=== PATIENT | male | born 2000 | race Caucasian/White ===

== ENCOUNTER 2022-05-18 21:49 | Emergency (ER) | payer BC, OTHER ==
[~2022-05-18] VITALS: Ht 185.4 cm; Wt 142.9 kg
[2022-05-18 23:04] VITALS: BP 149/107
[2022-05-18] MEDS ORDERED: NACL 0.9% 1,000 ML IV ONE (23:50)
[2022-05-19 00:12] LABS: BASOPHILS # (AUTO) 0.1 K/uL (0.00-0.22); BASOPHILS % (AUTO) 0.7 % (0.0-2.0); EOSINOPHILS # (AUTO) 0.2 K/uL (0-0.4); EOSINOPHILS % (AUTO) 1.8 % (0.0-4.0); HEMATOCRIT 46.7 % (36-52); HEMOGLOBIN 16.1 g/dL (12.0-18.0); LYMPHOCYTES # (AUTO) 2.7 K/uL (2.0-11.5); LYMPHOCYTES % (AUTO) 28.5 % (20.5-51.1); MEAN CORPUSCULAR HEMOGLOBIN 31 pg (27-31); MEAN CORPUSCULAR HGB CONC 34 g/dL (33-37); MEAN CORPUSCULAR VOLUME 88.8 fL (80-94); MONOCYTES # (AUTO) 0.6 K/uL (0.8-1.0); MONOCYTES % (AUTO) 6.8 % (1.7-9.3); NEUTROPHILS # (AUTO) 5.8 K/uL (1.8-7.7); NEUTROPHILS % (AUTO) 62.2 % (42.2-75.2); PLATELET COUNT (AUTO) 300 K/uL (140-450); RED BLOOD CELL COUNT(AUTO) 5.26 MIL/uL (4.20-6.10); RED CELL DISTRIBUTION WIDTH 13.3 % (11.6-13.7); WHITE BLOOD COUNT (AUTO) 9.4 K/uL (4.8-10.8)
[2022-05-19 00:32] LABS: ALBUMIN 4.1 g/dL (3.4-5.0); ANION GAP 12.5 (8-16); CARBON DIOXIDE 26.6 mmol/L (21-32); CREATININE 1.1 mg/dL (0.6-1.3); POTASSIUM 4.1 mmol/L (3.5-5.1); TOTAL BILIRUBIN 0.6 mg/dL (0.0-1.0)
[2022-05-19 00:54] LABS: APPEARANCE,URINE CLEAR (CLEAR); BILIRUBIN,URINE NEGATIVE (NEGATIVE); BLOOD, URINE NEGATIVE (NEGATIVE); COLOR,URINE YELLOW (YELLOW); LEUKOCYTE ESTERASE ,URINE NEGATIVE (NEGATIVE); NITRITE, URINE NEGATIVE (NEGATIVE); UGLUCOSE NEGATIVE (NEGATIVE)
--- NOTE | 2022-05-19 01:00 | NUR ---
RECEIVED IN BED 11 WITH C/O LEFT SIDE ABD PAIN X 3 WEEKS WITH BLOODY STOOL X 1 WEEK WITH NAUSEA. DENIES VOMITING. PMH: HTN
[2022-05-19 04:50] VITALS: BP 149/107
--- NOTE | 2022-05-19 04:50 | NUR ---
Patient discharged with v/s stable. Written and verbal after care instructions given and explained. Patient verbalized understanding. Ambulatory with steady gait. All questions addressed prior to discharge. Advised to follow up with PMD.
== END 2022-05-19 04:28 | disposition home or self-care (01) ==
LOC: MED 21:49
DX: K62.5 Hemorrhage of anus and rectum (principal); Z20.822 Contact with and (suspected) exposure to COVID-19; I10 Essential (primary) hypertension
CPT/HCPCS: 36415; 74176; 80053; 81003; 83605; 85025; 87040; 87426; 99284; J7030

== ENCOUNTER 2022-06-30 04:55 | Emergency (ER) | payer BC, OTHER ==
[~2022-06-30] VITALS: Ht 154.9 cm; Wt 138.3 kg
[2022-06-30 05:03] VITALS: BP 165/91
--- NOTE | 2022-06-30 05:09 | NUR ---
PT TAKEN TO BED 7
--- NOTE | 2022-06-30 05:17 | NUR ---
22/M BIB SELF WITH C/C OF HIGH BP SINCE YESTERDAY. PT TOOK HIS 10PM BP MEDS. REPORTS 7/10 H/A. STATES HE HAS CHEST DISCOMFORT " I FEEL LIKE MY HEART IS BEATING REALLY FAST". REPORTS CHILLS. DENIES VISION CHANGES. PER PATIENT HE HASNT TAKEN BP MEDICATION IN A WEEK AND DECIDED TO TAKE HIS MEDS DUE TO HEADACHE. PATIENT IS AAOX4 AND AMBULATORY. RR EVEN AND UNLABORED. DOESNT APPEAR TO BE IN DISTRESS. PLACED IN BED. BED LOW AND LOCKED. ALL NEEDS MET. PMHX HTN RX LISINOPRIL AND AMLODIPINE NKA
--- NOTE | 2022-06-30 06:00 | NUR ---
Dr. Driscoll examining patient.
--- NOTE | 2022-06-30 06:16 | NUR ---
X-Ray at bedside.
--- NOTE | 2022-06-30 06:16 | NUR ---
RAD AT BEDSIDE
--- NOTE | 2022-06-30 06:35 | NUR ---
BLOOD COLLECTED AND HANDED TO LAB.
[2022-06-30 06:49] LABS: BASOPHILS # (AUTO) 0.1 K/uL (0.00-0.22); BASOPHILS % (AUTO) 1.1 % (0.0-2.0); EOSINOPHILS # (AUTO) 0.1 K/uL (0-0.4); EOSINOPHILS % (AUTO) 1.2 % (0.0-4.0); HEMATOCRIT 45.2 % (36-52); HEMOGLOBIN 15.4 g/dL (12.0-18.0); LYMPHOCYTES # (AUTO) 2.1 K/uL (2.0-11.5); LYMPHOCYTES % (AUTO) 25.2 % (20.5-51.1); MEAN CORPUSCULAR HEMOGLOBIN 31 pg (27-31); MEAN CORPUSCULAR HGB CONC 34 g/dL (33-37); MEAN CORPUSCULAR VOLUME 89.2 fL (80-94); MONOCYTES # (AUTO) 0.6 K/uL (0.8-1.0); MONOCYTES % (AUTO) 7.3 % (1.7-9.3); NEUTROPHILS # (AUTO) 5.4 K/uL (1.8-7.7); NEUTROPHILS % (AUTO) 65.2 % (42.2-75.2); RED BLOOD CELL COUNT(AUTO) 5.06 MIL/uL (4.20-6.10); RED CELL DISTRIBUTION WIDTH 13.8 % (11.6-13.7); WHITE BLOOD COUNT (AUTO) 8.3 K/uL (4.8-10.8)
[2022-06-30 07:10] LABS: ALBUMIN 3.5 g/dL (3.4-5.0); ANION GAP 14.2 (8-16); ASPARTATE AMINOTRANSFERASE 36 U/L (15-37); CARBON DIOXIDE 23.1 mmol/L (21-32); CHLORIDE 105 mmol/L (98-107); CREATININE 0.8 mg/dL (0.6-1.3); GFR ARICAN-AMERICAN 153 mL/min (>90); GLUCOSE 103 mg/dL (74-106); POTASSIUM 4.3 mmol/L (3.5-5.1); SODIUM SERUM 138 mmol/L (136-145); TOTAL BILIRUBIN 1.1 mg/dL (0.0-1.0)
--- NOTE | 2022-06-30 07:15 | NUR ---
REPORT GIVEN TO MARTHA FIELD. TRANSFER OF CARE.
--- NOTE | 2022-06-30 07:17 | NUR ---
Report recieved from MARTHA Adams for transfer of care.
[2022-06-30 07:27] LABS: UREA NITROGEN, BLOOD 9 mg/dL (7-18)
[2022-06-30 07:34] LABS: PLATELET COUNT (AUTO) 159 K/uL (140-450)
--- NOTE | 2022-06-30 08:32 | NUR ---
Patient ambulated to restroom with steady gait.
[2022-06-30 08:42] VITALS: BP 141/84
--- NOTE | 2022-06-30 08:42 | NUR ---
Patient discharged with v/s stable. Written and verbal after care instructions given. Patient verbalized understanding. Ambulatory with steady gait. All questions addressed prior to discharge. Advised to follow up with PMD. WORK NOTE HANDED TO PATIENT.
--- NOTE | 2022-06-30 08:54 | NUR ---
The patient's care was reviewed and supervised by Nicole Perdomo RN.
== END 2022-06-30 08:42 | disposition home or self-care (01) ==
LOC: MED 04:55
DX: R07.89 Other chest pain (principal); I10 Essential (primary) hypertension; F12.90 Cannabis use, unspecified, uncomplicated
CPT/HCPCS: 36415; 71045; 80053; 84484; 85025; 93005; 99285; Q0092